=== PATIENT | female | born 1990 | race Two or more races ===

== ENCOUNTER 2017-03-28 20:11 | Emergency (ER) | payer MEDICAID ==
[~2017-03-28] VITALS: Ht 170.2 cm; Wt 95.3 kg
[~2017-03-28 20:11] MED LIST: BYSTOLIC5 MG PO; DULOXETINE30 M1 PO; FLEXERIL10 MG PO; FLONASE 50 MCG16 GM; FUROSEMIDE 40MG40 M1 PO; HUMALOG100 U/ML SC; HYDROCODONE-APA1 TA1 PO; INSULIN GL100 UNITS/ SC; IPRATROPIUM BRO15 ML NS; KEFLEX 500MG.500 MG PO; LEVOFLOXACIN 5500 M1 PO; LISINOPRIL5 MG NG; LORTAB 5/3251 TAB PO; MEDROL 4MG. DOSE4 MG PO; METFORMIN 500M500 M1 PO; NAPROSYN 500MG500 MG PO; NORCO 325 MG-101 TAB PO; NORCO 325 MG-51 TAB PO; NOVOLOG FLEX100 U/ML SC; PROCARDIA10 MG PO; TESSALON PERLE100 MG PO; ULTRAM50 MG PO; VENTOLIN H0.09 MG/Ac IH; VIBRAMYCIN 100100 MG PO; ZITHROMAX TRI-500 M1 PO
[2017-03-28] MEDS ORDERED: BUSPIRONE HCL7.5 MG PO (20:29)
--- NOTE | 2017-03-28 20:34 | Emergency Room Report ---
See Addendum History of Present Illness Time Seen by 2000 Presenting Problem in Triage Pt arrived:Wheelchair Presenting Problem:burining urination x 3 days associated with blistering on genitalia has had multiple sexual partners lately and thinks she may have acquired herpes. 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 Y Clinical Suspician of Infection? Y Mental Status: 1 - Regular (Normal Baseline) Sepsis Risk:Low Sepsis Risk Have you (or family members/close friends) recently traveled outside the [place]? N If Yes, where/when: Have you had exposure to infectious disease within the past month? N TB? Other? Specify: Source patient, RN notes reviewed, old records Exam Limitations no limitations Comment ext vaginal lesions over the last 2 days - pt with no prev herpes - Cardiac Chest Pain Chest pain indicative of cardiac No Timing/Duration this evening Severity moderate ALLERGIES Coded Allergies: Iodinated Contrast- Oral and IV Dye (Iodinated Contrast Media - IV Dye) ( Intermediate, I-HIVES 07/08/15) latex (Intermediate, I-HIVES 07/08/15) levofloxacin (From LEVAQUIN) (I-HIVES 07/08/15) tramadol (From ULTRAM) (HIVES/N/V 07/08/15) Uncoded Allergies: ANTIHISTAMINE (SOB 07/07/15) Home Medications Reported Medications Insulin Aspart, Recombinant (Novolog Flexpen) 0 UNITS SC HOURLY #40 Lisinopril 5 MG NG DAILY #30 Insulin Aspart, Recombinant (Novolog Flexpen) 0 UNITS SC ACHS Buspirone Hcl 7.5 MG PO DAILY #60 History Medical History General CAD? No Angina: No CT: No Hypertension? Yes Hyperlipidemia? No CHF? No DVT? No PE? No COPD? No Asthma? Yes Anemia? No GERD? Yes Gastric ulcers? No GI Bleed? No Hernia? No Thyroid Problems? No Hypothyroidism? No CVA? No Seizures? No Diabetes? Yes Insulin Dependent: Yes Insulin Pump: Yes Home FSBS? Yes Renal Insuffiency? No End Stage Renal Disease? No UTI? No Stones? No BPH? No GB Disease: No Nephritic Syndrome? No Asplenia? No Hepatitis? No Sickle Cell Disease? No Arthritis? No Migraines? Yes Cataracts? No Glaucoma? No MRSA? No HIV? No TB? No Anxiety? No Depression? No Cancer? 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 Respiratory denies cough Cardiovascular denies chest pain, denies syncope Gastrointestinal denies diarrhea Genitourinary denies: dysuria, frequency, hesitancy, hematuria. Musculoskeletal denies back pain, denies joint pain, denies neck pain Skin denies rash Psychiatric/Neurological denies headache, denies seizure Physical Exam Vital Signs Vital Signs Date Time Temp Pulse Resp B/P Pulse O2 O2 Flow FiO2 Ox Delivery Rate 03/28 2018 99.2 100 14 145/90 98 - WBC >12,000 or <4,000 or 10% bands? 2 or more SIRS Criteria Met? B/P:145/90 MAP:108 Creatinine >2.0? UA output<0.5ml/kg/hr for 2 hrs? Platelet count >100,000? Lactate >2.0mmol/1? INR >1.2 or PTT > than 60 sec? Evidence of Organ Dysfunction? Provider documented clinical suspician of infection? Y Sepsis Criteria Count: 1 Sepsis Risk: Low Sepsis Risk General Appearance no apparent distress Eye Exam - bilateral eye PERRL, bilateral eye EOMI Ear, Nose, Throat normal ENT inspection Neck supple Respiratory Status No: respiratory distress. Cardiovascular regular rate/rhythm Peripheral Pulses Pulses normal Yes Extremities normal inspection Strength 4 Upper Ext (L), 4 Upper Ext (R), 4 Lower Ext (L), 4 Lower Ext (R) Pelvic lesions, consistent with herpes Nurse present during exam? 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 No Results/Orders Orders Procedure Date/time Status CULTURE, HERPES 03/28 2046 Active RAPID PLASMA REAGIN 03/28 2046 Active ANTI HIV (SUDS) 03/28 2046 Active URINALYSIS/COMPLETE 03/28 2031 Active Departure Departure Time of Disposition 2050 Disposition DC Home or Self Care(routine) Clinical Impression Primary Impression: Herpes genitalis in women Condition STABLE Referrals Adan MCCLAIN,Ishan Wadsworth MD,Brayan Vaz Patient Instructions DI for Genital Herpes Additional Instructions use meds and see stripper printed circuit boards and pcp for follow up Discharge Counseling Counseled pt/family regarding diagnosis, test results, medications/RX, follow up needs Prescriptions Current Visit Scripts Acyclovir (Acyclovir 800MG) 800 MG PO QID #28 TAB Tramadol Hcl (Ultram 50MG) 50 MG PO TID #15 TAB ED Critical Care Critical Care No at 2056
--- NOTE | 2017-03-28 20:34 | Emergency Room Report ---
See Addendum History of Present Illness Time Seen by 2000 Presenting Problem in Triage Pt arrived:Wheelchair Presenting Problem:burining urination x 3 days associated with blistering on genitalia has had multiple sexual partners lately and thinks she may have acquired herpes. 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 Y Clinical Suspician of Infection? Y Mental Status: 1 - Regular (Normal Baseline) Sepsis Risk:Low Sepsis Risk Have you (or family members/close friends) recently traveled outside the [place]? N If Yes, where/when: Have you had exposure to infectious disease within the past month? N TB? Other? Specify: Source patient, RN notes reviewed, old records Exam Limitations no limitations Comment ext vaginal lesions over the last 2 days - pt with no prev herpes - Cardiac Chest Pain Chest pain indicative of cardiac No Timing/Duration this evening Severity moderate ALLERGIES Coded Allergies: Iodinated Contrast- Oral and IV Dye (Iodinated Contrast Media - IV Dye) ( Intermediate, I-HIVES 07/08/15) latex (Intermediate, I-HIVES 07/08/15) levofloxacin (From LEVAQUIN) (I-HIVES 07/08/15) tramadol (From ULTRAM) (HIVES/N/V 07/08/15) Uncoded Allergies: ANTIHISTAMINE (SOB 07/07/15) Home Medications Reported Medications Insulin Aspart, Recombinant (Novolog Flexpen) 0 UNITS SC HOURLY #40 Lisinopril 5 MG NG DAILY #30 Insulin Aspart, Recombinant (Novolog Flexpen) 0 UNITS SC ACHS Buspirone Hcl 7.5 MG PO DAILY #60 History Medical History General CAD? No Angina: No [place]: No Hypertension? Yes Hyperlipidemia? No CHF? No DVT? No PE? No COPD? No Asthma? Yes Anemia? No GERD? Yes Gastric ulcers? No GI Bleed? No Hernia? No Thyroid Problems? No Hypothyroidism? No CVA? No Seizures? No Diabetes? Yes Insulin Dependent: Yes Insulin Pump: Yes Home FSBS? Yes Renal Insuffiency? No End Stage Renal Disease? No UTI? No Stones? No BPH? No GB Disease: No Nephritic Syndrome? No Asplenia? No Hepatitis? No Sickle Cell Disease? No Arthritis? No Migraines? Yes Cataracts? No Glaucoma? No MRSA? No HIV? No TB? No Anxiety? No Depression? No Cancer? 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 Respiratory denies cough Cardiovascular denies chest pain, denies syncope Gastrointestinal denies diarrhea Genitourinary denies: dysuria, frequency, hesitancy, hematuria. Musculoskeletal denies back pain, denies joint pain, denies neck pain Skin denies rash Psychiatric/Neurological denies headache, denies seizure Physical Exam Vital Signs Vital Signs Date Time Temp Pulse Resp B/P Pulse O2 O2 Flow FiO2 Ox Delivery Rate 03/28 2018 99.2 100 14 145/90 98 - WBC >12,000 or <4,000 or 10% bands? 2 or more SIRS Criteria Met? B/P:145/90 MAP:108 Creatinine >2.0? UA output<0.5ml/kg/hr for 2 hrs? Platelet count >100,000? Lactate >2.0mmol/1? INR >1.2 or PTT > than 60 sec? Evidence of Organ Dysfunction? Provider documented clinical suspician of infection? Y Sepsis Criteria Count: 1 Sepsis Risk: Low Sepsis Risk General Appearance no apparent distress Eye Exam - bilateral eye PERRL, bilateral eye EOMI Ear, Nose, Throat normal ENT inspection Neck supple Respiratory Status No: respiratory distress. Cardiovascular regular rate/rhythm Peripheral Pulses Pulses normal Yes Extremities normal inspection Strength 4 Upper Ext (L), 4 Upper Ext (R), 4 Lower Ext (L), 4 Lower Ext (R) Pelvic lesions, consistent with herpes Nurse present during exam? 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 No Results/Orders Orders Procedure Date/time Status CULTURE, HERPES 03/28 2046 Active RAPID PLASMA REAGIN 03/28 2046 Active ANTI HIV (SUDS) 03/28 2046 Active URINALYSIS/COMPLETE 03/28 2031 Active Departure Departure Time of Disposition 2050 Disposition DC Home or Self Care(routine) Clinical Impression Primary Impression: Herpes genitalis in women Condition STABLE Referrals Adan MCCLAIN,Ishan Wadsworth MD,Brayan Vaz Patient Instructions DI for Genital Herpes Additional Instructions use meds and see electronic communications technician and pcp for follow up Discharge Counseling Counseled pt/family regarding diagnosis, test results, medications/RX, follow up needs Prescriptions Current Visit Scripts Acyclovir (Acyclovir 800MG) 800 MG PO QID #28 TAB Tramadol Hcl (Ultram 50MG) 50 MG PO TID #15 TAB ED Critical Care Critical Care No at 2056
[2017-03-28] MEDS ORDERED: ACYCLOVIR800 MG PO (20:54)
[2017-03-28] MEDS ORDERED: ULTRAM50 MG PO (20:55)
[2017-03-28] MEDS ORDERED: TYLENOL WITH CO1 TA1 PO (20:58)
[2017-03-28 21:07] VITALS: BP 145/90
[2017-03-28 21:26] LABS: URINE BILIRUBIN - DIPSTICK NEGATIVE (NEG); URINE BLOOD 2+ (NEG)
[2017-03-28 22:26] LABS: URINE SQUAMOUS CELLS 20-50 #/hpf (0-5)
[2017-03-30 08:43] LABS: HIV Screen 4th Generation wRfx Non Reactive (Non Reactive); Rapid Plasma Reagin, Quant Non Reactive (NonRea<1:1)
== END 2017-03-28 21:08 | disposition home or self-care (01) ==
LOC: ER 20:11
PROVIDERS: Emergency Medicine
DX: A60.04 Herpesviral vulvovaginitis (principal); E11.9 Type 2 diabetes mellitus without complications; Z79.4 Long term (current) use of insulin; I10 Essential (primary) hypertension; K21.9 Gastro-esophageal reflux disease without esophagitis; Z91.040 Latex allergy status; F17.210 Nicotine dependence, cigarettes, uncomplicated
CPT/HCPCS: G0432